=== PATIENT | female | born 1985 | race African-American/Black ===

== ENCOUNTER 2017-10-30 08:26 | Emergency (ER) | payer SELFPAY ==
[2017-10-30] MEDS ORDERED: FLUORESCEIN SODIUM 0.6 MG/WRAP ONE (08:48)
[2017-10-30] MEDS ORDERED: TETRACAINE HCL 0.5% 2ML OPTH ONE (08:48)
--- NOTE | 2017-10-30 08:55 | ER ---
Nurse's Notes [facility] Name: Lg Perez Age: 32 yrs Sex: Female : 1985 Arrival Date: 10/30/2017 Time: 08:30 Bed 15 Private MD: None, None Diagnosis: Local trauma to right eye Presentation: 10/30 08:41 Presenting complaint: Patient states: R eye pain and redness started last Friday, hj denies taking any eye drops and meds; reports trauma to the area, bat hit the R eye from playing softball; reports discharges; denies blurry vision;. Transition of care: patient was not received from another setting of care. Onset of symptoms was October 30, 2017. Initial Sepsis Screen: Does the patient meet any 2 criteria? No. Patient's initial sepsis screen is negative. Does the patient have a suspected source of infection? No. Patient's initial sepsis screen is negative. Care prior to arrival: None. 08:41 Method Of Arrival: Ambulatory 08:41 Acuity: FELECIA 4 hj Triage Assessment: 08:44 General: Appears in no apparent distress. uncomfortable, Behavior is calm, cooperative, hj appropriate for age. Pain: Complains of pain in right eye. EENT: Reports pain photophobia. Neuro: Level of Consciousness is awake, alert, obeys commands, Oriented to person, place, time, situation, Appropriate for age. Cardiovascular: Capillary refill < 3 seconds Patient's skin is warm and dry. Respiratory: Airway is patent Respiratory effort is even, unlabored, Respiratory pattern is regular, symmetrical. GI: No signs and/or symptoms were reported involving the gastrointestinal system. : No signs and/or symptoms were reported regarding the genitourinary system. Derm: No signs and/or symptoms reported regarding the dermatologic system. Musculoskeletal: No signs and/or symptoms reported regarding the musculoskeletal system. Historical: - Allergies: 08:43 No Known Allergies; hj - Home Meds: 08:43 None [Active]; hj - PMHx: 08:43 None; hj - PSHx: 08:43 None; hj - Immunization history:: Adult Immunizations up to date. - Social history:: Smoking status: Patient uses tobacco products, smokes one-half pack cigarettes per day, Patient uses alcohol, occasionally. - Family history:: not pertinent. - Hospitalizations: : No recent hospitalization is reported. Screenin:44 Abuse screen: Denies threats or abuse. Denies injuries from another. Nutritional hj screening: No deficits noted. Tuberculosis screening: No symptoms or risk factors identified. Fall Risk None identified. Vital Signs: 08:45 BP 176 / 100; Pulse 85; Resp 18; Temp 97.6(TE); Pulse Ox 100% on R/A; Weight 92.99 kg; hj Height 5 ft. 8 in. (172.72 cm); 08:45 Body Mass Index 31.17 (92.99 kg, 172.72 cm) ED Course: 08:30 Patient arrived in ED. mr 08:30 None, None is Private Physician. mr 08:37 Yunior Guy MD is Attending Physician. rn 08:41 Aston Blue RN is Primary Nurse. hj 08:42 Triage completed. hj 08:45 Arm band placed on right wrist. hj 08:45 Patient has correct armband on for positive identification. Call light in reach. Side hj rails up X 1. 08:54 Denisha Pineda MD is Referral Physician. rn 09:00 No provider procedures requiring assistance completed. Patient did not have IV access hj during this emergency room visit. Administered Medications: No medications were administered Outcome: 08:54 Discharge ordered by . rn 09:00 Discharged to home ambulatory. hj 09:00 Condition: stable 09:00 Discharge instructions given to patient, Instructed on discharge instructions, follow up and referral plans. medication usage, Demonstrated understanding of instructions, follow-up care, medications, Prescriptions given X 1. 09:02 Patient left the ED. Signatures: Bell Workman Yunior Guy MD MD rn Joaquin, Henry, RN RN jaclyn Corrections: (The following items were deleted from the chart) 08:55 08:41 Presenting complaint: Patient states: R eye pain and redness started last Friday, hj denies taking any eye drops and meds; denies trauma to the area; reports discharges; denies blurry vision; hj
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
== END 2017-10-30 09:02 | disposition home or self-care (01) ==
LOC: ER 08:26
DX: S05.91XA Unspecified injury of right eye and orbit, initial encounter (principal); W50.0XXA Accidental hit or strike by another person, initial encounter; Y93.89 Activity, other specified; Y92.9 Unspecified place or not applicable; F17.210 Nicotine dependence, cigarettes, uncomplicated
CPT/HCPCS: 99282

== ENCOUNTER 2018-06-29 08:05 | Emergency (ER) | payer SELFPAY ==
[2018-06-29 09:17] LABS: Urine Bacteria <20 /HPF (<20); Urine Culture Reflex Order REFLEXED; Urine Mucus 2+ /HPF (NONE SEEN); Urine RBC <5 /HPF (NONE SEEN); Urine Trichomonas PRESENT (NONE SEEN)
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
[2018-06-29 09:54] LABS: Urine Blood 2+ (NEG); Urine Glucose NEGATIVE (NEG); Urine Protein 2+ (NEG); Urine Specific Gravity 1.025 (1.005-1.030)
[2018-06-29] MEDS ORDERED: NITROFURAN MACRO 100 MG CAP PO ONE (10:10)
== END 2018-06-29 10:03 | disposition home or self-care (01) ==
LOC: ER 08:05
DX: R07.89 Other chest pain (principal); M79.622 Pain in left upper arm; A59.9 Trichomoniasis, unspecified; N39.0 Urinary tract infection, site not specified
CPT/HCPCS: 81003; 81015; 81025; 87086; 87088; 99284